=== PATIENT | male | born 1965 | race American Indian/Alaskan Native ===

== ENCOUNTER 2017-01-26 20:05 | Emergency (ER) | payer MEDICAID ==
[2017-01-26] MEDS ORDERED: CATAPRES ONE (20:39)
[2017-01-26] MEDS ORDERED: CATAPRES PO ONE (20:42)
[2017-01-26] MEDS ORDERED: MOTRIN PO ONE (21:21)
[2017-01-26 22:01] VITALS: BP 205/92
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
== END 2017-01-26 22:58 | disposition left against medical advice (07) ==
LOC: ED 20:05
DX: I10 Essential (primary) hypertension (principal); G89.4 Chronic pain syndrome; F17.200 Nicotine dependence, unspecified, uncomplicated
CPT/HCPCS: 99283

== ENCOUNTER 2022-04-24 12:50 | Emergency (ER) | payer MEDICAID ==
[2022-04-24 14:23] VITALS: BP 184/132
== END 2022-04-24 23:26 | disposition left against medical advice (07) ==
LOC: ED 12:50
DX: R06.02 Shortness of breath (principal); Z53.21 Procedure and treatment not carried out due to patient leaving prior to being seen by health care provider